=== PATIENT | female | born 1980 | race Caucasian/White ===

== ENCOUNTER → 2020-04-19 00:29 | Outpatient (CLI) | payer BC, SELFPAY ==
[2020-04-19 18:03] LABS: SARS-CoV-2 RNA PCR Negative
== END ==
PROVIDERS: PCP Family Medicine; Visit Provider Internal Medicine Gastroenterology
DX: Z01.812 Encounter for preprocedural laboratory examination (principal); Z20.822 Contact with and (suspected) exposure to COVID-19
CPT/HCPCS: C9803; U0003; U0005

== ENCOUNTER 2020-04-22 00:19 | Day surgery (SDC) | payer BC, SELFPAY ==
[2020-04-09 10:59] VITALS: BMI 25.4
[2020-04-22 11:55] VITALS: BP 126/85; PULSE 96; RESP 18; TEMP 37.2; O2SAT 100
[2020-04-22] MEDS: LACTATED RINGERS 1,000 ML 150 ML IV CONT (12:05)
--- NOTE | 2020-04-22 12:16 | P.PNAN_ITS ---
Anes - Initial Pre Proc Eval Procedure: Operation Date: 04/22/20 13:00 Proposed Procedures p Esophagogastroduodenoscopy - Logan Villa MD Date/Time: 04/22/20 12:16 Surgeon: Logan Villa MD Pre Op Diagnosis: Gastritis Patient Data Age: 40 Gender: F Height: 5 ft 1 in Weight: 62.3 kg Last Vital Signs Temp 98.9 F 04/22/20 11:55 Pulse 96 04/22/20 11:55 Resp 18 04/22/20 11:55 BP 126/85 04/22/20 11:55 Pulse Ox 100 04/22/20 11:55 Allergies Allergy/AdvReac Type Severity Reaction Status Date / Time promethazine Allergy Intermediate -restless Verified 04/22/20 11:47 legs Home Medications Medication Instructions Recorded Confirmed Type levothyroxine 137 mcg capsule 137 mcg PO DAILY #90 cap 05/22/19 04/09/20 Rx etonogestrel 0.12 mg-ethinyl 1 vag ring VAGINAL ONCE 06/13/19 04/09/20 History estradiol 0.015 mg/24 hr vaginal ring galcanezumab-gnlm 120 mg/mL 120 mg SUB-Q MONTHLY 30 Days #1 ml 06/13/19 04/09/20 Rx subcutaneous pen injector Gilbert-Vitamin Womens 2 cap PO DAILY 04/09/20 04/09/20 History omeprazole 40 mg PO DAILY 04/09/20 04/22/20 History sumatriptan succinate 100 mg tablet See Rx Instructions .ROUTE 04/20/20 04/22/20 Rx .COMPLEX #15 tablet Patient hx anesthesia problems: none Family hx anesthesia problems: none PMFSH Past Medical History Medical History (Updated 04/22/20 @ 12:15 by Gabe Burnett MD) delivery delivered (~2011) Hypothyroid Migraine Vaginal delivery (~2008) Surgical History Surgical History History of appendectomy (~2005) History of laparoscopy (~2006) Family History Family History Mother Cervical cancer Grandparent Breast cancer Social History Social History (Updated 02/26/20 @ 09:14 by Yaquelin Leo CMA) Smoking packs per day: 1 Smoking cigarettes per day: 20.0 Years smoked: 4 Smoking pack-years: 4.00 Smoking status: Former smoker Tobacco type: cigarettes Second hand tobacco smoke exposure: No Alcohol intake: never Substance use: never Substance use type: does not use Living arrangements: with family 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 Gender identity (if verbalized by the patient): Female Spiritual care concerns: No Agree to blood products: Yes Anes - Eval Final PreProcedure Day of Procedure 04/22/20 12:16 Patient weight: normal Heart: regular rate and rhythm Lungs: clear to auscultation Airway: Mallampati scale class II Neurological: alert and oriented Last oral intake: >/= 8 hours ASA classification: II Emergent: no Anesthetic plan: proceed Anesthesia type and monitoring: general GIVS and standard monitoring Informed Consent: The patient's anesthetic plan and its attendant risks and benefits were discussed with the patient/family/POA. Questions were solicited and answers provided to the satisfaction of the patient/family/POA.
--- NOTE | 2020-04-22 13:23 | PM.HPGS ---
History of Present Illness History of Present Illness Consent: Risks, benefits, and alternatives have been discussed and questions answered. Patient agrees to proceed with procedure. Chief complaint: Gastritis Narrative: Yulia óLpez is a 40 year old female with epigastric pain improved with omeprazole and discontinued ibuprofen but still not gone. Never had EGD. Review of Systems Constitutional: Constitutional: Denies headache(s) and Denies weakness Eyes: Eyes: Denies blurry vision ENT: Reports Normal hearing present, Denies headache(s) and Denies neck pain Cardiovascular: Cardiovascular: Denies chest pain and Denies dyspnea Respiratory: Respiratory: Denies dyspnea Gastrointestinal: Gastrointestinal: Reports no additional gastrointestinal complaints Genitourinary: Genitourinary: Denies dysuria Musculoskeletal: Musculoskeletal: Denies neck pain Integumentary/Breasts: Skin/Breast: Denies dry skin Neurologic: Reports Normal hearing present, Denies headache(s) and Denies weakness Psychiatric: Psychiatric: Denies anxiety Endocrine: Endocrine: Denies change in body appearance Hematologic/Lymphatic: Hematologic/Lymphatic: Denies easy bleeding Allergic/Immunologic: Allergic/Immunologic: Denies urticaria PMF Past Medical History Medical History (Updated 04/22/20 @ 13:24 by Logan Villa MD) delivery delivered (~2011) Dyspepsia Epigastric pain Hypothyroid Migraine NSAID long-term use Vaginal delivery (~2008) Surgical History Surgical History History of appendectomy (~2005) History of laparoscopy (~2006) Family History Family History Mother Cervical cancer Grandparent Breast cancer Social History Social History (Updated 02/26/20 @ 09:14 by Yaquelin Leo [facility]) Smoking packs per day: 1 Smoking cigarettes per day: 20.0 Years smoked: 4 Smoking pack-years: 4.00 Smoking status: Former smoker Tobacco type: cigarettes Second hand tobacco smoke exposure: No Alcohol intake: never Substance use: never Substance use type: does not use Living arrangements: with family 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 Gender identity (if verbalized by the patient): Female Spiritual care concerns: No Agree to blood products: Yes Meds Home Medications and Allergies Home Medications Medication Instructions Recorded Confirmed Type levothyroxine 137 mcg capsule 137 mcg PO DAILY #90 cap 05/22/19 04/09/20 Rx etonogestrel 0.12 mg-ethinyl 1 vag ring VAGINAL ONCE 06/13/19 04/09/20 History estradiol 0.015 mg/24 hr vaginal ring galcanezumab-gnlm 120 mg/mL 120 mg SUB-Q MONTHLY 30 Days #1 ml 06/13/19 04/09/20 Rx subcutaneous pen injector Gilbert-Vitamin Womens 2 cap PO DAILY 04/09/20 04/09/20 History omeprazole 40 mg PO DAILY 04/09/20 04/22/20 History sumatriptan succinate 100 mg tablet See Rx Instructions .ROUTE 04/20/20 04/22/20 Rx .COMPLEX #15 tablet Allergies Allergy/AdvReac Type Severity Reaction Status Date / Time promethazine Allergy Intermediate -restless Verified 04/22/20 11:47 legs Vital Signs Vital Signs - 24 hr 04/22/20 11:55 Temperature 98.9 F Pulse Rate 96 Respiratory Rate 18 Blood Pressure 126/85 Pulse Oximetry 100 Exam Const: General: comfortable and no acute distress HENMT: General nose exam: Normal nares present Eyes: General: appearance normal, both eyes and all related structures Neck: Neck: no JVD Resp: Auscultation: clear to auscultation bilaterally Cardio: Rate: regular rate Rhythm: regular rhythm GI: Inspection: non-distended GI Palp: Yes Soft to palpation Skin: General skin exam: normal color Neuro: General: gait normal Speech: normal speech Extrem: General: normal to inspection Psych: Mental Status: mental status grossly normal Assessment and Plan
[2020-04-22 13:49] VITALS: BP 113/78; PULSE 80; RESP 21; O2SAT 100
[2020-04-22 13:59] VITALS: BP 110/79; PULSE 78; RESP 18; O2SAT 97
[2020-04-22 14:09] VITALS: BP 129/78; PULSE 78; RESP 16; O2SAT 100
== END 2020-04-22 14:19 | disposition home or self-care (01) ==
PROVIDERS: PCP Family Medicine; Visit Provider Internal Medicine Gastroenterology
PROC: 0DJ08ZZ Inspection of Upper Intestinal Tract, Via Natural or Artificial Opening Endoscopic (ICD-10-PCS; CPT 43235; principal; 2020-04-22 13:00)
DX: K21.9 Gastro-esophageal reflux disease without esophagitis (principal); K29.50 Unspecified chronic gastritis without bleeding; K44.9 Diaphragmatic hernia without obstruction or gangrene; E03.9 Hypothyroidism, unspecified; Z87.891 Personal history of nicotine dependence; Z79.1 Long term (current) use of non-steroidal anti-inflammatories (NSAID)
CPT/HCPCS: 43239; 88305; C9803; J2704; J7120; U0003; U0005

== ENCOUNTER → 2020-07-15 08:15 | Outpatient (CLI) | payer BC, SELFPAY ==
--- NOTE | ~2020-07-15 | US_ITS ---
EXAMINATION: US abdomen limited EXAM DATE: 07/15/2020 08:41 INDICATION: R10.11 - Right upper quadrant pain TECHNIQUE: Multiple grayscale and Doppler images of the abdomen right upper quadrant were obtained (b y a technologist who performed the scan) and subsequently reviewed. There is no prior study for meet mtz. FINDINGS: The pancreatic head and body are normal in appearance. The pancreatic tail is not visualized. The l iver has normal echogenicity and contour. There are no focal liver lesions identified. There is no evidence of intrahepatic biliary duct dilation. Portal venous flow was seen in the hepatopedal, nor mal direction and has normal Doppler waveform. No right-sided hydronephrosis. Common bile duct measures 2 mm, which is normal. The gallbladder wall is normal in thickness, with ex pected amount of distention. No sonographic evidence of pericholecystic fluid. There is cholelithia sis. Technologist performing exam reports patient did not demonstrate sonographic Momin's sign. P john note that this sign is less reliable in patients who have received pain medication. IMPRESSION: 1. Cholelithiasis. Otherwise unremarkable gallbladder. Reviewed, dictated and finalized at location B.
== END ==
PROVIDERS: PCP Family Medicine; Visit Provider Physician Assistant
DX: K80.20 Calculus of gallbladder without cholecystitis without obstruction (principal); R10.11 Right upper quadrant pain
CPT/HCPCS: 76705

== ENCOUNTER 2020-09-15 08:27 | Outpatient (CLI) | payer BC, SELFPAY ==
[2020-09-15 09:55] LABS: Alanine Aminotransferase 16 U/L (4-35); Albumin Level 4.5 g/dL (3.5-5.1); Alkaline Phosphatase 56 U/L (38-126); Amylase 84 U/L (30-110); Anion Gap 10 mmol/L (8-16); Aspartate Amino Transferase 19 U/L (14-36); Bilirubin,Total 0.5 mg/dL (0.2-1.3); Blood Urea Nitrogen 13 mg/dL (7-17); Calcium 9.5 mg/dL (8.4-10.2); Carbon Dioxide 21 mmol/L (22-30); Chloride 105 mmol/L (98-107); Estimated Glomerular Filt Rate > 60; Glucose 100 mg/dL (65-110); Lipase 87 U/L (23-300); Potassium 4.1 mmol/L (3.4-5.0); Sodium 136 mmol/L (137-145)
== END 2020-09-15 08:28 | disposition home or self-care (01) ==
LOC: ANHSURGERY 08:29
PROVIDERS: PCP Family Medicine; Visit Provider Surgery
DX: K80.10 Calculus of gallbladder with chronic cholecystitis without obstruction (principal); Z01.818 Encounter for other preprocedural examination
CPT/HCPCS: 36415; 80053; 82150; 83690

== ENCOUNTER 2020-09-20 01:53 | Day surgery (SDC) | payer BC, SELFPAY ==
[2020-09-13 13:58] VITALS: BMI 26.0
--- NOTE | 2020-09-17 19:30 | WPDANESEPP ---
Anes - Eval Pre Procedure Procedure: Operation Date: 09/20/20 12:00 Proposed Procedures p Laparoscopic Cholecystectomy, Possible Intraoperative Cholangiogram, Possible Open - Anthony Marin MD Date/Time: 09/17/20 19:30 Pre Op Diagnosis: chronic cholecystitis with cholelithiasis Patient Data Age: 40 Gender: F Height: 1.55 m Weight: 62.6 kg Allergies Allergy/AdvReac Type Severity Reaction Status Date / Time promethazine Allergy Intermediate -restless Verified 09/13/20 14:05 legs Home Medications Medication Instructions Recorded Confirmed Type etonogestrel 0.12 mg-ethinyl 1 vag ring VAGINAL ONCE 06/13/19 09/13/20 History estradiol 0.015 mg/24 hr vaginal ring Gilbert-Vitamin Womens 2 cap PO DAILY 04/09/20 09/13/20 History sumatriptan succinate 100 mg tablet See Rx Instructions .ROUTE 04/20/20 09/13/20 Rx .COMPLEX #15 tablet omeprazole 40 mg capsule,delayed See Rx Instructions .ROUTE 06/29/20 09/13/20 Rx release .COMPLEX #90 capsule magnesium L-lactate 84 mg 84 mg PO DAILY 08/12/20 09/13/20 History tablet,extended release mecobalamin (vitamin B12) 1,000 1,000 mcg PO DAILY 08/12/20 09/13/20 History mcg chewable tablet levothyroxine 137 mcg tablet See Rx Instructions .ROUTE 08/17/20 09/13/20 Rx .COMPLEX #90 tablet topiramate 25 mg tablet See Rx Instructions PO BID #60 09/13/20 09/13/20 Rx tablet Patient hx anesthesia problems: none Family hx anesthesia problems: none PMFSH Past Medical History Medical History (Updated 09/17/20 @ 19:31 by Akshat Najera DO) Dyspepsia Endometriosis Epigastric pain Hypothyroid Migraine NSAID long-term use Vaginal delivery (~2008) Vasovagal syncope Surgical History Surgical History (Updated 09/17/20 @ 19:31 by Akshat Najera DO) H/O endoscopy (~04/22/20) History of appendectomy (~2005) History of 2011 - blood transfusions History of laparoscopy (~2006) Family History Family History Mother Cervical cancer Grandparent Breast cancer Sibling T-cell leukemia Unknown Brain aneurysm Social History Social History Social History: former smoker Smoking packs per day: 1 Smoking cigarettes per day: 20.0 Years smoked: 4 Smoking pack-years: 4.00 Smoking status: Never smoker Tobacco type: cigarettes Second hand tobacco smoke exposure: No Alcohol intake: never Substance use: never Substance use type: does not use 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
[2020-09-20] VITALS (9 sets, daily range): BP systolic 96–135; BP diastolic 65–81; PULSE 65–104; RESP 16–23; TEMP 36.4–37.2; O2SAT 97–100
--- NOTE | 2020-09-20 06:58 | PM.HPGS ---
History of Present Illness History of Present Illness Consent: Risks, benefits, and alternatives of a laparoscopic cholecystectomy with possible intraoperative cholangiogram, possible open cholecystectomy have been discussed and questions answered. Patient agrees to proceed with procedure. Chief complaint: chronic cholecystitis with cholelithiasis Narrative: Yulia López is a 40 year old white female who recently presented to the office at the request of Su Marcos PA-C for an evaluation of epigastric pain. Patient reports she has been having epigastric pain that moved into her back since June 2019. She reports the pain was a stabbing pain. She reports it started out randomly. She reports that in December 2019 she was given Omeprazole 40 mg once daily. She reports this did help the stabbing pain somewhat but now she is noticing pain when she is hungry. Patient had an EGD competed by Dr Villa on 04/22/2020. EGD showed a hiatal hernia. She has continued taking the Omeprazole daily. She also had a RUQ ultrasound on 07/15/2020 that showed cholelithiasis. She reports she has had a laparoscopic appendectomy, a , and a laparotomy for endometriosis. She reports she has tried a gallbladder flush and this did not help. Other medical history includes migrainea and hypothyroidism. Review of Systems Constitutional: Constitutional: Reports no additional constitutional complaints, Reports fatigue and Denies malaise Eyes: Eyes: Denies change in vision and Denies loss of vision ENT: Reports Normal hearing present, Denies change in voice, Denies dizziness, Denies hoarseness and Denies sore throat Cardiovascular: Cardiovascular: Denies chest pain, Denies leg edema and Denies dyspnea Respiratory: Respiratory: Denies cough, Denies dyspnea and Denies wheezing Gastrointestinal: Gastrointestinal: Reports belching, Reports bloating, Denies hematochezia, Denies change in bowel habits and Denies heartburn Comments: Recently discovered hiatal hernia with some element of GERD Patient is on PPI. Genitourinary: Genitourinary: Denies urinary frequency and Denies urinary incontinence Comments: History of endometriosis Neurologic: Reports Normal hearing present, Denies confusion, Denies dizziness, Denies loss of vision, Denies memory loss and Denies seizure-like activity Psychiatric: Psychiatric: Denies confusion, Denies depression and Denies memory loss Endocrine: Endocrine: Denies cold intolerance and Reports fatigue Hematologic/Lymphatic: Hematologic/Lymphatic: Denies easy bleeding and Denies easy bruising Allergic/Immunologic: Allergic/Immunologic: Denies wheezing PMFSH Past Medical History Medical History Dyspepsia Endometriosis Epigastric pain Hypothyroid Migraine NSAID long-term use Vaginal delivery (~2008) Vasovagal syncope Surgical History Surgical History H/O endoscopy (~04/22/20) History of appendectomy (~2005) History of 2011 - blood transfusions History of laparoscopy (~2006) Family History Family History Mother Cervical cancer Grandparent Breast cancer Sibling T-cell leukemia Unknown Brain aneurysm Social History Social History Social History: former smoker Smoking packs per day: 1 Smoking cigarettes per day: 20.0 Years smoked: 4 Smoking pack-years: 4.00 Smoking status: Never smoker Tobacco type: cigarettes Second hand tobacco smoke exposure: No Alcohol intake: never Substance use: never Substance use type: does not use Living arrangements: with family 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
[2020-09-20] MEDS: ACETAMINOPHEN 500 MG TABLET 1000 MG PO (10:48)
[2020-09-20] MEDS: LACTATED RINGERS 1,000 ML 30 ML IV CONT ×2 (10:50→14:20)
[2020-09-20] MEDS: KETOROLAC 15 MG/ML VIAL (*BKC) IV PUSH (10:51)
--- NOTE | 2020-09-20 12:02 | WPDHPUPDATE1 ---
History and Physical Update Update Date/Time: 09/20/20 12:02 History and Physical has been reviewed, including an updated exam of the patient. There are NO changes in the patient's condition. Risks, benefits, and alternatives have been discussed and questions answered. Patient agrees to proceed with procedure.
[2020-09-20] MEDS: ceFAZolin 2 GM/D5W 50 ML 2 GM/50 ML BAG IVPB (12:10)
--- NOTE | 2020-09-20 12:21 | WPDANESEFPP ---
Anes - Eval Final PreProcedure Day of Procedure 09/20/20 12:21 Patient weight: overweight Heart: regular rate and rhythm Lungs: clear to auscultation Airway: Mallampati scale class II Neurological: alert and oriented Last oral intake: >/= 8 hours ASA classification: II Emergent: no Anesthetic plan: proceed Anesthesia type and monitoring: general ETT and standard monitoring Informed Consent: The patient's anesthetic plan and its attendant risks and benefits were discussed with the patient/family/POA. Questions were solicited and answers provided to the satisfaction of the patient/family/POA.
[2020-09-20] MEDS: BUPIVACAINE/EPINEPHRINE 0.5% 50 ML VIAL (13:45)
--- NOTE | 2020-09-20 14:30 | W.PM.PROC2 ---
Procedure Note - Detailed Date of Procedure 09/20/20 Pre-op Diagnosis 1. chronic cholecystitis with cholelithiasis 2. possible small umbilical hernia Post-op Diagnosis other (Same with small umbilical hernia with incarcerated omentum.) Procedure Performed 1. Laparoscopic cholecystectomy 2. Repair of small umbilical hernia with sutures Surgeon Anthony Marin MD [employer] TIFFANIE Owusu, [place] 1st assist Anesthesia general Indications The patient has been having intermittent right upper quadrant pain and ultrasound showed gallstones Findings Upon making incision in the umbilicus skin was elevated and a small less than 1 cm umbilical defect was identified. Palpable stone within the gallbladder upon removal otherwise normal-appearing gallbladder Description of Procedure Patient was seen preoperatively in the holding area and risks, benefits and alternatives confirmed. Patient was taken to the operating room and general anesthesia was induced. A time out was then preformed with the surgery team confirming patient and site of surgery. The abdomen was prepped and draped in the usual sterile fashion. Incision was made in the umbilicus with an 15 blade knife right on the previous scar which was vertical within the umbilicus. Following this I tried to raise skin flaps to each side in order to elevate the skin off the underlying fascia and hernia sac. Following this we dissect the hernia sac and dissected out the omentum within it that was incarcerated. Then I placed 2 stay sutures of O- Vicryl on either side of the mid-line fascia the umbilicus and the hernia that was present I enlarged the opening of the hernia with 11 blade until was large enough to insert the son cannula. I then was able to slide in the Alan cannula through the fascial defect into the peritoneum. First under low flow and then under high flow the abdomen was insufflated with carbon dioxide never exceeding a pressure of 14. Three 5 mm trocars were then introduced under direct vision. The following trocars were introduced under direct vision: a 5 mm in the epigastrium and two 5 mm trocars along the right costal margin laterally in the subcostal area. At this point has we discussed with the patient we also placed her in Trendelenburg position and carefully inspected the pelvis and lower abdomen. I could see the uterus well which seems slightly large for her age. We could see the left ovary but not the right. There were no signs of peritoneal implants suggestive of in endometriosis. There were not any adhesions to the underside of the gallbladder. I then carefully used the L-shaped cautery and the [place] dissector to dissect out the triangle of Calot. I then was able to dissect out both the cystic duct and cystic artery and identify a window of safety. The gall bladder was grasped and the cystic duct and artery were dissected free and clipped with an 5 mm endo-clip lap hand tool. The cystic duct and artery were clipped with use of 2 clips on the patient's side 1 on the gallbladder side utilizing a 5 mm endoclip-lap hand tool. The cystic duct was then transected. The cystic artery was also transected at this point. The gall bladder was removed using electrocautery and then removed from the abdomen using a large 10 mm grasper via the umbilical incision. The trocars were removed visualizing hemostasis and the remaining gas evacuated. The large trocar site at the umbilicus where we had found a small hernia was closed with use of the 2 stay sutures of 0 Vicryl mentioned above and also a figure of 8 O-Vicryl suture and a single extra simple suture of 0 Vicryl. With inspection and palpation the seemed to close the small fascial defect that was present. The 2 stay sutures mentioned above on either side of the fascia were also tied together to help approximate this midline fascia. Further local anesthetic was placed into each incision for postop pain control. The skin incisions were closed w
[2020-09-20] MEDS: oxyCODONE HCL (*CRX) 5 MG TAB IR PO (16:28)
== END 2020-09-20 16:30 | disposition home or self-care (01) ==
PROVIDERS: PCP Family Medicine; Visit Provider Surgery
PROC: 0FT44ZZ Resection of Gallbladder, Percutaneous Endoscopic Approach (ICD-10-PCS; CPT 47562; principal; 2020-09-20 12:00)
DX: K80.10 Calculus of gallbladder with chronic cholecystitis without obstruction (principal); K42.0 Umbilical hernia with obstruction, without gangrene; R10.13 Epigastric pain; N80.9 Endometriosis, unspecified; E03.9 Hypothyroidism, unspecified; K21.9 Gastro-esophageal reflux disease without esophagitis; F17.210 Nicotine dependence, cigarettes, uncomplicated
CPT/HCPCS: 47562; 36415; 80053; 82150; 83690; 88302; 88304; A9270; J0690; J1100; J1170; J1885; J2250; J2405; J2704; J2710; J3010; J7030; J7120

== ENCOUNTER 2023-05-18 11:05 | Outpatient (CLI) | payer BC, SELFPAY ==
[2023-05-18 13:27] LABS: Basophils Percent Auto 0.7 % (0.2-1.2); Eosinophils Absolute Auto 0.2 K/mm3 (0-0.3); Eosinophils Percent Auto 3.6 % (0-4.4); Hematocrit 43.7 % (37.0-47.0); Hemoglobin 13.6 g/dL (12.0-15.0); Immature Granulocyte Absolute 0.01 K/mm3 (0.00-0.031); Immature Granulocyte Percent A 0.2 % (0-0.5); Lymphocytes Absolute Auto 2.19 K/mm3 (0.9-3.2); Lymphocytes Percent Auto 37.3 % (18.3-44.2); Mean Corpuscular HGB Conc 31.1 g/dl (32-36); Mean Corpuscular Volume 96.5 fl (80-100); Mean Platelet Volume 11.5 fl (7.4-10.4); Monocytes Absolute Auto 0.3 K/mm3 (0.1-0.6); Monocytes Percent Auto 5.5 % (2.6-8.5); Neutrophils Absolute Auto 3.1 K/mm3 (1.3-6.7); Neutrophils Percent Auto 52.7 % (45.5-73.1); Platelet Count Result 266 k/mm3 (150-375); Red Blood Count 4.53 M/mm3 (4.2-5.4); Red Cell Distribution Width 12.9 % (11.5-14.5); White Blood Count 5.9 K/mm3 (4.5-10.0)
[2023-05-18 13:42] LABS: Alanine Aminotransferase 17 U/L (6-35); Albumin Level 4.7 g/dL (3.5-5.1); Alkaline Phosphatase 63 U/L (38-126); Anion Gap 9 mmol/L (4-12); Aspartate Amino Transferase 41 U/L (14-36); Bilirubin,Total 0.9 mg/dL (0.2-1.3); Blood Urea Nitrogen 15 mg/dL (7-17); Calcium 9.9 mg/dL (8.4-10.2); Carbon Dioxide 21 mmol/L (22-30); Chloride 109 mmol/L (98-107); Cholesterol 276 mg/dL (0-200); Estimated Glomerular Filt Rate > 60; Glucose 90 mg/dL (65-110); HDL Direct 101 mg/dL; Potassium 3.9 mmol/L (3.4-5.0); Sodium 139 mmol/L (137-145); Triglycerides 159 mg/dL (<150)
[2023-05-18 14:04] LABS: Thyroid Stimulating Hormone 0.042 uIU/mL (0.465-4.680)
[2023-05-18 14:14] LABS: LDL Cholesterol Direct 149 mg/dL
[2023-05-18 14:53] LABS: Vitamin D 25 Hydroxy 58.3 ng/mL
== END 2023-05-18 11:06 | disposition home or self-care (01) ==
LOC: ANHGOSHLAB 11:06
PROVIDERS: PCP Internal Medicine; Visit Provider Nurse Practitioner
DX: E78.5 Hyperlipidemia, unspecified (principal); E03.9 Hypothyroidism, unspecified; Z13.29 Encounter for screening for other suspected endocrine disorder
CPT/HCPCS: 36415; 80053; 80061; 82306; 84443; 85025

== ENCOUNTER 2023-08-23 10:14 | Outpatient (CLI) | payer BC, SELFPAY ==
--- NOTE | ~2023-08-23 | MR_ITS ---
MRI of the brain Clinical History: Migraine headache Technique: Axial and sagittal T1-weighted images were acquired. These were followed by axial T2-weigh mago, diffusion weighted, gradient, and FLAIR images. Findings: No abnormal signal seen in the brain parenchyma. No acute infarct, intracranial hemorrhage, or mass lesion. Ventricles and subarachnoid spaces are unremarkable. Orbits are unremarkable. Paranasal sinuses and m astoid air cells are clear. Major intracranial flow voids are intact. Sagittal midline structures are intact. IMPRESSION: Normal examination. Reviewed, dictated and finalized at location M. IMPRESSION: Normal examination.
== END 2023-08-23 10:15 ==
LOC: MICIMG 10:15
PROVIDERS: PCP Emergency Medicine; Visit Provider Student in an Organized Health Care Education/Training Program
DX: G43.909 Migraine, unspecified, not intractable, without status migrainosus (principal)
CPT/HCPCS: 70551

== ENCOUNTER 2024-05-23 11:18 | Outpatient (CLI) | payer BC, SELFPAY ==
--- OUTSIDE RECORDS SUMMARY | 2024-05-23 11:45 | XMS_ITS | Referral Summary ---
Author Organization [facility] Building [address] [place] [id number] Care Team Providers Care Funeral Home Makeup Artist Name Role Phone Karen Keenan NP Primary Care Provider + [phone] Allergies Active Allergy Reactions Criticality Noted Date Comments Promethazine Other (See comments) Reaction: OTHER REACTION, Medications Qulipta 60 mg tablet Take 1 tablet by mouth daily 06/07/2023 Active levothyroxine (SYNTHROID) 100 mcg tablet Take 1 tablet (100 mcg total) by mouth daily 05/21/2023 Active SUMAtriptan (IMITREX) 100 mg tablet Take 0.5 tablets (50 mg total) by mouth as needed 06/10/2023 Active topiramate (TOPAMAX) 50 mg tablet Take 1.5 tablets (75 mg total) by mouth 2 (two) times a day 06/14/2023 Active venlafaxine XR (EFFEXOR-XR) 37.5 mg 24 hr capsule Take 1 capsule (37.5 mg total) by mouth daily 05/27/2023 Active cyclobenzaprine (FLEXERIL) 5 mg tablet Take 1 tablet (5 mg total) by mouth nightly Active Active Problems Problem Noted Date Diagnosed Date Menorrhagia 06/20/2023 Overview (06/20/2023): Nuvaring has failed to control Assessment & Plan (06/20/2023 3:42 PM CDT): Plan for Novasure EM ablation. Risks, benefits, alternatives to endometrial ablation discussed. The risk of uterine infection, bleeding and perforation with injury to adjacent organs were all discussed. She is aware of the 10% minimum failure rate with EM ablation. Her permanent contraception vasectomy. Social History Tobacco Use Types Packs/Day Years Used Date Smoking Tobacco: Never Smokeless Tobacco: Never AUDIT-C Answer Date Recorded Q1: How often do you have a drink containing alcohol? Never 12/19/2023 Q2: How many drinks containi ng alcohol do you have on a typical day when you are drinking? Patient does not drink Q3: How often do you have si x or more drinks on one occasion? Never 12/19/2023 Personal Safety Answer Date Recorded Have you ever been in or are you currently in a harmful physical or emotional relationship or is someone making you feel afraid or unsafe? 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 TEACHER Gender Identity Not on file Sexual Orientation Not on file Last Filed Vital Signs Vital Sign Reading Time Taken Comments Blood Pressure 108/68 12/19/2023 10:57 AM THERMODYNAMICS TEACHER Pulse 66 08/01/2023 9:05 AM CDT Temperature 37 C (98.6 F) 08/01/2023 8:40 AM CDT Respiratory Rate 11 08/01/2023 9:05 AM CDT Oxygen Saturation 100% 08/01/2023 9:05 AM CDT Inhaled Oxygen Concentration - - Weight 50.8 kg (112 lb) 12/19/2023 10:57 AM THERMODYNAMICS TEACHER Height 154.9 cm (5' 1 ) 12/19/2023 10:57 AM THERMODYNAMICS TEACHER Body Mass Index 21.16 12/19/2023 10:57 AM THERMODYNAMICS TEACHER Plan of Treatment Not on file Procedures Procedure Name Priority Date/Time Associated Diagnosis Comments SCREENING MAMMOGRAM BILATERAL W VALERIY Schedule Routine, Read Routine (OP Routine) 08/20/2023 7:33 AM CDT Screening mammogram, encounter for from Last 3 Months or Most Recently Relevant to Health Maintenance Results * Screening Mammogram Bilateral W Valeriy (08/20/2023 7:33 AM CDT) Anatomical Region Laterality Modality Breast Bilateral Mammography Impressions 08/20/2023 3:43 PM CDT BI-RADS ATLAS category (overall): 1 - Negative There is no mammographic evidence of malignancy. A 1 year screening mammogram is recommended. The patient has been or will be contacted. We recommend annual screening mammography for women at average risk of breast cancer beginning at age 40, based on guidelines of the [employer] (ACR Practice Parameter for the Performance of Screening and Diagnostic Mammography) and [employer]. For women with and elevated risk of breast cancer, please refer to the ACR Practice Parameter for specific screening recommendations. The patient will be entered into a reminder system with a target due date of 1 year for her next screening exam. Narrative 08/20/2023 3:43 PM CDT Screening Mammogram Bilateral W Valeriy: 08/20/23 The study was acquired using full field digital technology and interpreted from soft copy. 2D digital mammographic views, as well as 3D digital tomosynthesis were performed in the CC and MLO projections. CLINICAL: Screening mammogram, encounter for. No relevant medical history has been documented for this patient. History of breast cancer in Maternal Grandmother, Paternal Grandmother. COMPARISONS: 05/18/2021 Screening Mammogram Bilateral W Valeriy BREAST TISSUE: The breasts are extremely dense, which lowers the sensitivity of mammography. FINDINGS: No suspicious masses, suspicious calcifications, or other suspicious findings are seen within either breast. There has been no suspicious change. us Self Screening Mammogram IMG MAMMO PROCEDURES Fi nal Result from Last 3 Months or Most Recently Relevant to Health Maintenance Insurance [employer] Address: [address] [place] [address] [employer] Address: [address] [place] [address] Advance Directives For more information, please contact: [phone] * Full Code (Latest Code Status on File) Date Activated Date Inactivated Comments 08/01/2023 8:28 AM 08/01/2023 1:27 PM Care Teams Funeral Home Makeup Artist Relationship Specialty Start Date End Date Karen Keenan NP [address] [place] [address] [place] [address] PCP - General Nurse Practitioner 08/20/23
--- OUTSIDE RECORDS SUMMARY | 2024-05-23 11:45 | XMS_ITS | Clinical Summary ---
Author Organization [facility] Medical Office Building [address] [place] [id number] Care Team Providers Care Anesthesia Associate Name Role Phone Karen Keenan NP Primary Care Provider + [phone] Allergies Active Allergy Reactions Criticality Noted Date [...] with EM ablation. Her permanent contraception vasectomy. Surgical History Surgery Date Site/Laterality Comments APPENDECTOMY 11/12/2004 - 12/12/2004 GALLBLADDER SURGERY 02/13/2020 - 02/11/2021 LAPAROSCOPY 2006 - 05/12/2006 Endometriosis Medical History Medical History Date Comments Hypothyroid Migraines Vasovagal reaction Family History Medical History Relation Name Comments Lymphoma Brother T-Cell Breast cancer Maternal Grandmother Colon cancer Maternal Grandmother Cervical cancer Mother Colon cancer Paternal Grandfather Breast cancer Paternal Grandmother Relation Name Status Comments Brother Maternal Grandmother Mother Paternal Grandfather Paternal Grandmother Social History Tobacco Use Types Packs/Day Years [...] on file Legal Sex Female 10:10 PM RN BIRTHING Gender Identity Not on file Sexual Orientation Not on file Obstetrics History Para Term AB IAB SAB Ectopic Multiple Livin g Live Births 2 2 2 2 2 Date Outcome GA Total Labor Labor/2nd/3rd Weight Sex Type Anes PTL Nikkie A1 A5 Name Clin 2008 Term F Vaginal Livin g Philly 2011 Term M C-Secti on Livin g Azar Last Filed Vital Signs Vital Sign Reading Time Taken Comments Blood Pressure 108/68 12/19/2023 10:57 AM RN BIRTHING Pulse 66 08/01/2023 9:05 AM CDT Temperature 37 C (98.6 F) 08/01/2023 8:40 AM CDT Respiratory Rate 11 08/01/2023 9:05 AM CDT Oxygen Saturation 100% 08/01/2023 9:05 AM CDT Inhaled Oxygen Concentration - - Weight 50.8 kg (112 lb) 12/19/2023 10:57 AM RN BIRTHING Height 154.9 cm (5' 1 ) 12/19/2023 10:57 AM RN BIRTHING Body Mass Index 21.16 12/19/2023 10:57 AM RN BIRTHING Plan of Treatment Health Maintenance Due Date Last Done Comments Cervical Cancer Screening 1980 Depression Screening 1980 Hepatitis C Screening 1980 DTaP/Tdap/Td Vaccine (1 - Tdap) 04/13/1991 Varicella Vaccines (1 of 2 - 13+ 2-dose series) 1993 Hepatitis B Screening 1998 Covid-19 Vaccine (2023-2 5 season) 2023 08/05/2020, 07/15/2020 Breast Cancer Screening-Mammogram 08/19/2024 08/20/2023, 05/18/2021 Influenza Vaccine (Season Ended) 2024 Regular Well Visit/Exam 18-64 12/18/2024 12/19/2023 HPV Vaccines Aged Out No longer eligi ble based on patient's age to complete this topic Pneumococcal vaccine <65 Aged Out No longer eligible based on patient's age to complete this topic Procedures Procedure Name Priority Date/Time Associated Diagnosis [...] age 40, based on guidelines of the [employer] (ACR Practice Parameter for the Performance of Screening and Diagnostic Mammography) and [employer]. For women [...] Most Recently Relevant to Health Maintenance Insurance [employer] Advance Directives For more information, please contact: [phone] * Full Code (Latest Code Status on File) Date Activated Date Inactivated Comments 08/01/2023 8:28 AM 08/01/2023 1:27 PM Care Teams Anesthesia Associate Relationship Specialty Start Date End Date Karen Keenan NP [address] [place] [address] DR WELLS [address] [place] [id number] PCP - General Nurse Practitioner 08/20/23
[2024-05-23 18:26] LABS: Basophils Absolute Auto 0.1 K/mm3 (0.0-0.1); Basophils Percent Auto 0.8 % (0.2-1.2); Eosinophils Absolute Auto 0.3 K/mm3 (0-0.3); Eosinophils Percent Auto 4.1 % (0-4.4); Hematocrit 41.6 % (37.0-47.0); Hemoglobin 13.4 g/dL (12.0-15.0); Lymphocytes Absolute Auto 2.39 K/mm3 (0.9-3.2); Lymphocytes Percent Auto 37.4 % (18.3-44.2); Mean Corpuscular HGB Conc 32.2 g/dl (32-36); Mean Corpuscular Hemoglobin 30.8 pg (26-34); Mean Corpuscular Volume 95.6 fl (80-100); Mean Platelet Volume 11.6 fl (7.4-10.4); Monocytes Absolute Auto 0.4 K/mm3 (0.1-0.6); Monocytes Percent Auto 5.6 % (2.6-8.5); Neutrophils Absolute Auto 3.3 K/mm3 (1.3-6.7); Neutrophils Percent Auto 52.1 % (45.5-73.1); Platelet Count Result 245 k/mm3 (150-375); Red Blood Count 4.35 M/mm3 (4.2-5.4); Red Cell Distribution Width 12.8 % (11.5-14.5); White Blood Count 6.4 K/mm3 (4.5-10.0)
[2024-05-23 18:40] LABS: Alanine Aminotransferase 20 U/L (6-35); Albumin Level 4.4 g/dL (3.5-5.1); Alkaline Phosphatase 61 U/L (38-126); Anion Gap 11 mmol/L (4-12); Aspartate Amino Transferase 34 U/L (14-36); Bilirubin,Total 0.3 mg/dL (0.2-1.3); Blood Urea Nitrogen 14 mg/dL (7-17); Calcium 9.1 mg/dL (8.4-10.2); Carbon Dioxide 22 mmol/L (22-30); Chloride 108 mmol/L (98-107); Cholesterol 205 mg/dL (0-200); Estimated Glomerular Filt Rate > 60; Glucose 83 mg/dL (65-110); HDL Direct 75 mg/dL; Potassium 4.1 mmol/L (3.4-5.0); Sodium 141 mmol/L (137-145); Triglycerides 67 mg/dL (<150)
[2024-05-23 18:47] LABS: Vitamin D 25 Hydroxy 51.3 ng/mL
[2024-05-23 18:52] LABS: LDL Cholesterol Direct 102 mg/dL
[2024-05-23 19:09] LABS: Thyroid Stimulating Hormone 0.342 uIU/mL (0.465-4.680)
== END 2024-05-23 11:19 | disposition home or self-care (01) ==
LOC: ANHGOSHLAB 11:19
PROVIDERS: PCP Internal Medicine; Visit Provider Nurse Practitioner
DX: Z13.29 Encounter for screening for other suspected endocrine disorder (principal); E78.5 Hyperlipidemia, unspecified; E03.9 Hypothyroidism, unspecified; E55.9 Vitamin D deficiency, unspecified
CPT/HCPCS: 36415; 80053; 80061; 82306; 84443; 85025

== ENCOUNTER 2024-08-07 08:15 | Outpatient (CLI) | payer BC, SELFPAY ==
[2024-08-07 13:21] LABS: Thyroid Stimulating Hormone 0.611 uIU/mL (0.465-4.680)
== END 2024-08-07 08:16 | disposition home or self-care (01) ==
LOC: ANHGOSHLAB 08:16
PROVIDERS: PCP Emergency Medicine; Visit Provider Nurse Practitioner
DX: E03.9 Hypothyroidism, unspecified (principal)
CPT/HCPCS: 36415; 84443